=== PATIENT | male | born 1975 | race Caucasian/White ===

== ENCOUNTER → 2017-01-11 | Outpatient (CLI) | payer OTHER ==
[~2017-01-11] MED LIST: LISI-360 PO
[2017-01-11 10:15] LABS: ANION GAP 7 MEQ/L (5-15); AST (GOT) 22 U/L (15-37); BICARBONATE 26.9 MEQ/L (21.0-32.0); BLOOD UREA NITROGEN 13 MG/DL (7-18); CHLORIDE 105 MEQ/L (98-107); GLOMERULAR FILTRATION RATE 91 ML/MIN (>89); GLUCOSE,FASTING 115 MG/DL (74-99); SODIUM (NA) 139 MEQ/L (136-145)
[2017-01-11 10:16] LABS: ALT (GPT) 74 U/L (12-78)
[2017-01-11 10:26] LABS: ALKALINE PHOSPHATASE 50 U/L (45-117); HDL CHOLESTEROL 39.3 MG/DL (40.0-60.0); LDL CHOLESTEROL 124 MG/DL (0-99); TOTAL BILIRUBIN ADULT 0.4 MG/DL (0.2-1.0)
[2017-01-11 17:05] LABS: HEMOGLOBIN A1b 1.7 %; HEMOGLOBIN Ao 85.4 %; HEMOGLOBIN P3 3.7 %
== END ==
LOC: CLAB 09:02
PROVIDERS: ATTEND Family Medicine
DX: I10 Essential (primary) hypertension (principal)
CPT/HCPCS: 36415; 80053; 80061; 83036; 84443